=== PATIENT | female | born 1955 | race African-American/Black ===

== ENCOUNTER 2017-11-27 18:05 | Emergency (ER) | payer SELFPAY ==
[2017-11-27 18:24] VITALS: BMI 30.9
--- NOTE | 2017-11-27 20:00 | PDOC ---
History of Present Illness - General History Source: Patient Exam Limitations: No Limitations - History of Present Illness Initial Comments: 11/27/17 21:11 The patient is a 62 year old female with past medical history of HTN, DM ( borderline) and HLD presents to the emergency department with vertigo. The patient reports around 5:00 pm today she suffered an episode of objective vertigo accompanied with sweating, immediately called her daughter for assist. As per the daughter, the patient had associated concerns of nonbloody nonbilious emesis, fatigue, and headache ( now resolved). The patient states she had a regular bowel movement during her episode of vomiting. Denies recent travel or illness. Denies fever, chills, or a cough. Denies chest pain or sob. Denies abdominal pain or back pain. Denies any prior similar incidents. Denies recent head injury. Denies numbness, tingling or loss of sensations. Denies diarrhea or constipation. Allergies: NKDA Social history: Patient reports daily use of cigarettes since age 13. Patient reports the use of marijuana. Denies the use of alcohol. Surgical history: None reported. PCP: Bonifacio Perez <Sujey Christiansen - Last Filed: 11/28/17 00:52> <Jerrod Garcia - Last Filed: 11/28/17 02:07> - General Chief Complaint: Lightheaded Stated Complaint: FATIGUE Time Seen by Provider: 11/27/17 19:48 Past History <Sujey Christiansen - Last Filed: 11/28/17 00:52> - Past Medical History CVA: No COPD: No DVT: No Diabetes: Yes (BODERLINE) HTN: Yes - Immunization History Immunization Up to Date: Yes - Suicide/Smoking/Psychosocial Hx Smoking History: Current every day smoker Have you smoked in the past 12 months: No Number of Cigarettes Smoked Daily: 10 Information on smoking cessation initiated: No Hx Alcohol Use: No Drug/Substance Use Hx: Yes (MARIJUANA) Substance Use Type: Marijuana <Jerrod Garcia - Last Filed: 11/28/17 02:07> - Past Medical History Allergies/Adverse Reactions: Allergies Allergy/AdvReac Type Severity Reaction Status Date / Time No Known Allergies Allergy Verified 11/27/17 18:20 Review of Systems - Review of Systems Able to Perform ROS?: Yes Comments:: 11/27/17 21:11 CONSTITUTIONAL: No fever, no chills, (+) fatigue EYES: No visual changes ENT: No ear pain, no sore throat CARDIOVASCULAR: No chest pain, no palpitations RESPIRATORY: No cough, no SOB GI: No abdominal pain, (+) nausea w/ episodes of vomiting. no constipation, no diarrhea GENITOURINARY: No dysuria, no frequency, no hematuria MUSKULOSKELETAL: No backpain, no joint pain, no myalgias SKIN: No rash NEURO: (+) Subjective vertigo. (+)headache (now resolved). <Sujey Christiansen - Last Filed: 11/28/17 00:52> *Physical Exam - Vital Signs Last Vital Signs Temp Pulse Resp BP Pulse Ox 97.7 F 72 17 151/83 99 11/27/17 18:20 11/27/17 18:20 11/27/17 18:20 11/27/17 18:20 11/27/17 18:20 - Physical Exam Comments: 11/27/17 21:14 CONSTITUTIONAL: Well-appearing; well-nourished; in no apparent distress HEAD: Normocephalic; atraumatic EYES: PERRL; EOM intact ENMT: External appears normal; normal oropharynx NECK: Supple; non-tender; no cervical lymphadenopathy CARD: Normal S1, S2; no murmurs, rubs, or gallops RESP: Normal chest excursion with respiration; breath sounds clear and equal bilaterally; no wheezes, rhonchi, or rales ABD: Soft, non-distended; non-tender; no palpable organomegaly, no palpable hernias EXT: Normal ROM in all four extremities; non-tender to palpation; distal pulses intact SKIN: Warm, dry, no rash NEURO: No focal neurological deficiencies. Alert, awake, appropriate. Cranial nerves 2-12 intact. No deficits to light touch and temperature in face, upper extremities and lower extremities. No motor deficits in the in face, upper extremities and lower extremities. Normoreflexic in the upper and lower extremities. Normal speech. Toes are down-going bilaterally. Gait is normal without ataxia. No pronator drift. No dysmetria. No dysdiadochokinesis. No skew deviation. No abnormal nystagmus. Rhomberg is +/-. Head thrust test is +/-. Dixs-Hallpike test is +/-. <Sujey Christiansen - Last Filed: 11/28/17 00:52> - Vital Signs Last Vital Signs Temp Pulse Resp BP Pulse Ox 97.7 F 72 17 151/83 99 11/27/17 18:20 11/27/17 18:20 11/27/17 18:20 11/27/17 18:20 11/27/17 18:20 <Jerrod Garcia - Last Filed: 11/28/17 02:07> Heart Score/ECG Review - Age Age: 45-65 - ECG Impressions Comment:: 11/28/17 00:52 Vent rate: 73 bpm WI interval: 194 ms QRS duration: 90 ms QT/QTc: 422/464 ms P-R-T axes: 58 1 125 Normal sinus rhythm Moderate voltage criteria for LVH, may be normal variant T wave abnormality, consider inferior ischemia T wave abnormality, consider anterolateral ischemia <Sujey Christiansen - Last Filed: 11/28/17 00:52> - History History: Slightly suspicious - Electrocardiogram EKG: Non specific repolarization disturbance - Age Age: 45-65 - Risk Factors Risk Factors Heart Score: Yes Hx Hypertension, Yes Smoking History Based on the list above the patient has:: 1-2 risk factors - Troponin Troponin: </= normal limit - Score Heart Score - Total: 3 <Jerrod Garcia - Last Filed: 11/28/17 02:07> ED Treatment Course - LABORATORY CBC & Chemistry Diagram: 11/27/17 20:14 11/27/17 20:14 - ADDITIONAL ORDERS Additional order review: Laboratory Results 11/27/17 11/27/17 20:14 20:14 PT with INR 11.50 INR 1.02 Urine Color Straw Urine Appearance Clear Urine pH 5.0 Ur Specific [place] 1.013 Urine Protein Negative Urine Glucose (UA) Negative Urine Ketones Negative Urine Blood 2+ H Urine Nitrite Negative Urine Bilirubin Negative Urine Urobilinogen Negative Ur Leukocyte Esterase Negative Urine WBC (Auto) 1 Urine RBC (Auto) 1 Ur Epithelial Cells Rare Urine Mucus Rare 11/27/17 20:14 RBC 5.09 MCV 81.8 MCHC 33.0 RDW 15.0 MPV 7.9 Neutrophils % 67.7 Lymphocytes % 26.2 Monocytes % 4.5 Eosinophils % 0.7 Basophils % 0.9 - Medications Given in the ED: ED Medications Discontinued Medications Generic Name Dose Route Start Last Admin Trade Name Garret PRN Reason Stop Dose Admin Sodium Chloride 1,000 mls @ 1,000 mls/hr 11/27/17 20:02 11/27/17 20:52 Normal Saline - IV 11/27/17 21:01 1,000 mls/hr ASDIR STA Administration <Sujey Christiansen - Last Filed: 11/28/17 00:52> - LABORATORY CBC & Chemistry Diagram: 11/27/17 20:14 11/27/17 20:14 <Jerrod Garcia - Last Filed: 11/28/17 02:07> Medical Decision Making - Medical Decision Making 11/28/17 02:02 62-year-old female with history of hypertension, hyperlipidemia, long history of smoking presents to the ER with a self limiting vertigo nausea and generalized weakness with malaise. In the ER, patient is noted to be awake and alert, resting comfortably, improving after administration of 1 L of normal saline. Serial neurological evaluations reveal no focal deficits. I do not suspect cerebellar dysfunction as the cause of patient's symptoms. Peripheral vertigo is likely. Serial cardiac enzymes showed no evidence of acute myocardial infarction. EKG was noted for diffuse nonspecific T-wave abnormalities and voltage criteria for LVH which may be responsible for the repolarization abnormalities. Patient is safe for discharge with a heart score of 3 and will be discharged with outpatient cardiology follow-up further evaluation and treatment. <Jerrod Garcia - Last Filed: 11/28/17 02:07> *DC/Admit/Observation/Transfer - Attestations Scribe Attestion: 11/27/17 21:21 Documentation prepared by Sujey Christiansen, acting as medical professionals for Jerrod Garcia MD. <Sujey Christiansen - Last Filed: 11/28/17 00:52> - Attestations Physician Attestion: 11/28/17 02:02 The documentation was prepared by the scribe under my direct supervision. I have reviewed the documentation which correctly represents the findings, medical decision-making and critical action taken by me. <Jerrod Garcia - Last Filed: 11/28/17 02:07> Diagnosis at time of Disposition: Dizziness, Weakness - Discharge Dispostion Disposition: HOME Condition at time of disposition: Stable - Referrals Referrals: Bonifacio Perez [Primary Care Provider] - Jose Carlos Corona MD [Staff Physician] - - Patient Instructions Printed Discharge Instructions: Vertigo, DI for Muscle Weakness - Post Discharge Activity
[2017-11-27] MEDS ORDERED: SODIUM CHLORIDE 1,000 ML IV STA (20:02)
[2017-11-27 20:33] LABS: BASO % 0.9 % (0-2.0); EOS % 0.7 % (0-4.5); HEMATOCRIT 41.6 % (32.4-45.2); HEMOGLOBIN 13.7 GM/dL (10.7-15.3); LYMPH % 26.2 % (8-40); MEAN CELL VOLUME 81.8 fl (80-96); MEAN PLT VOLUME 7.9 fl (7.5-11.1); MONO % 4.5 % (3.8-10.2); NEUT % 67.7 % (42.8-82.8); PLATELET COUNT 316 K/MM3 (134-434); RBC 5.09 M/mm3 (3.60-5.2); WHITE BLOOD COUNT 10.3 K/mm3 (4.0-10.0)
[2017-11-27 20:41] LABS: URINE APPEARANCE CLEAR; URINE BILIRUBIN NEGATIVE (<2.0 mg/dL); URINE COLOR STRAW; URINE GLUCOSE (UA) NEGATIVE (NEGATIVE); URINE KETONE NEGATIVE (NEGATIVE); URINE LEUK ESTERASE NEGATIVE (NEGATIVE); URINE NITRITE NEGATIVE (NEGATIVE); URINE PROTEIN NEGATIVE (NEGATIVE); URINE UROBILINOGEN NEGATIVE mg/dL (0.2-1.0)
[2017-11-27 20:47] LABS: INR 1.02 (0.82-1.09); PROTHROMBIN TIME (PATIENT) 11.5 SEC (9.7-13.0)
[2017-11-27 20:51] LABS: EPI CELLS RARE /HPF (FEW); URINE MUCUS RARE
[2017-11-27 21:28] LABS: ALBUMIN 3.7 g/dl (3.4-5.0); ANION GAP 7 (8-16); BLOOD UREA NITROGEN 15 mg/dL (7-18); CALCIUM 9.9 mg/dL (8.5-10.1); CHLORIDE 101 mmol/L (98-107); CO2 31 mmol/L (21-32); GLUCOSE,RANDOM 126 mg/dL (74-106); POTASSIUM 3.5 mmol/L (3.5-5.1); SODIUM 139 mmol/L (136-145)
[2017-11-27 21:34] LABS: ALK PHOS 98 U/L (45-117); BILIRUBIN,TOTAL 0.4 mg/dL (0.2-1.0); CREATININE 0.8 mg/dL (0.55-1.02); SGOT/AST 13 U/L (15-37); SGPT/ALT 18 U/L (12-78); TOT PROT 7.9 g/dl (6.4-8.2)
[2017-11-28 02:25] VITALS: BP 157/85; PULSE 82; TEMP 98.3
--- NOTE | 2017-11-29 17:37 | EKG ---
Test Reason : Blood Pressure : / mmHG Vent. Rate : 074 BPM Atrial Rate : 074 BPM P-R Int : 196 ms QRS Dur : 090 ms QT Int : 404 ms P-R-T Axes : 071 009 -36 degrees QTc Int : 448 ms NORMAL SINUS RHYTHM POSSIBLE LEFT ATRIAL ENLARGEMENT LEFT VENTRICULAR HYPERTROPHY WITH REPOLARIZATION ABNORMALITY ABNORMAL ECG WHEN COMPARED WITH ECG OF 27-NOV-2017 20:23, NO SIGNIFICANT CHANGE WAS FOUND Confirmed by NITA NOGUERA MD ([id number]) on 11/29/2017 5:36:33 PM Referred By: Confirmed By:NITA NOGUERA MD
--- NOTE | 2017-11-29 17:48 | EKG ---
Test Reason : Blood Pressure : / mmHG Vent. Rate : 073 BPM Atrial Rate : 073 BPM P-R Int : 194 ms QRS Dur : 090 ms QT Int : 422 ms P-R-T Axes : 058 001 125 degrees QTc Int : 464 ms NORMAL SINUS RHYTHM MODERATE VOLTAGE CRITERIA FOR LVH, MAY BE NORMAL VARIANT T WAVE ABNORMALITY, CONSIDER INFERIOR ISCHEMIA T WAVE ABNORMALITY, CONSIDER ANTEROLATERAL ISCHEMIA ABNORMAL ECG WHEN COMPARED WITH ECG OF 03-APR-2002 16:18, T WAVE VARIATION Confirmed by NITA NOGUERA MD ([id number]) on 11/29/2017 5:48:32 PM Referred By: Confirmed By:NITA NOGUERA MD
== END 2017-11-28 02:27 | disposition home or self-care (01) ==
LOC: JER 18:05
PROC: 3E0337Z Introduction of Electrolytic and Water Balance Substance into Peripheral Vein, Percutaneous Approach (ICD-10-PCS; principal; 2017-11-27)
DX: R53.1 Weakness (principal); I10 Essential (primary) hypertension; E78.00 Pure hypercholesterolemia, unspecified; E11.9 Type 2 diabetes mellitus without complications
CPT/HCPCS: 36415; 71045-TC-FY; 80053; 81003; 81015; 82550; 82553; 84484; 85025; 85610; 93005; 93010; 99282-25; J7030

== ENCOUNTER 2023-01-23 07:18 | Emergency (ER) | payer OTHER ==
[2023-01-23 07:34] VITALS: BP 134/80; PULSE 103; RESP 18; TEMP 98.8; BMI 29.2
[2023-01-23] MEDS ORDERED: LIDOCAINE 5% TOPICAL PATCH TP ONE (07:58)
[2023-01-23] MEDS ORDERED: valACYclovir HCL 500 MG TABLET (FP) PO ONE (07:58)
[2023-01-23] MEDS ORDERED: IBUPROFEN 400 MG TABLET (FP) PO ONE ×2 (08:05→08:07)
[2023-01-23] MEDS ORDERED: valACYclovir HCL 500 MG TABLET (FP) ONE (08:05)
[2023-01-23] MEDS ORDERED: LIDOCAINE 5% TOPICAL PATCH ONE (08:05)
[2023-01-23] MEDS ORDERED: LIDOCAINE PATCH REMOVAL MC ONE (22:00)
== END 2023-01-23 08:24 | disposition home or self-care (01) ==
LOC: JER 07:18
DX: M79.651 Pain in right thigh (principal); R21 Rash and other nonspecific skin eruption; B02.9 Zoster without complications
CPT/HCPCS: 99283-25